=== PATIENT | female | born 1940 | race Caucasian/White ===

== ENCOUNTER → 2017-07-08 | Outpatient (CLI) | payer OTHER ==
[~2017-07-08] MED LIST: ACETAMINOPHEN 325 MG TAB PO ONE
== END ==
LOC: FOBOP 13:30
PROVIDERS: ATTEND Internal Medicine Hematology & Oncology
PROC: 30243N1 Transfusion of Nonautologous Red Blood Cells into Central Vein, Percutaneous Approach (ICD-10-PCS; principal; 2017-07-08)
DX: R53.83 Other fatigue (principal); D75.81 Myelofibrosis
CPT/HCPCS: 36430; P9016; P9040

== ENCOUNTER 2017-07-10 14:06 | Emergency (ER) | payer OTHER ==
[2017-07-10 14:12] VITALS: TEMP 98.4
--- NOTE | 2017-07-10 15:10 | CPEKG ---
Heart Rate: 88 RR Interval: 682 P-R Interval: 176 QRSD Interval: 72 QT Interval: 372 QTC Interval: 450 P Loyall: 56 QRS Loyall: -10 T Wave Loyall: 43 EKG Severity - NORMAL ECG - EKG Impression: SINUS RHYTHM Electronically Signed By: Ashley Carroll 10-Jul-2017 22:57:14
--- NOTE | 2017-07-10 15:25 | EDPHY ---
H & P Stated Complaint: right lung pain Time Seen by Provider: 07/10/17 15:14 HPI/ROS: CHIEF COMPLAINT: Right sided chest pain HISTORY OF PRESENT ILLNESS: This patient is an anticoagulated (Coumadin) 77 year old female with myelofibrosis and pulmonary embolism complaining of severe right-sided chest pain. Onset of rt sided chest pain 2 months ago. One week ago she was diagnosed with a pulmonary embolism and placed on Coumadin and Lovenox. While driving into town this morning, her pain worsened suddenly, and "feels like something exploded" in her right chest area. The pain is severe and worsens with inspiration. She has noted increased shortness of breath over the last few weeks but no worsening today. She had a blood transfusion recently. Prior to her diagnosis of PE, she had intermittent right-sided chest pain since April. She denies any recent trauma. No fever, cough, abdominal complaints, or other associated symptoms. REVIEW OF SYSTEMS: A 10 point review of systems was performed and is negative with the exception of the elements mentioned in the history of present illness. - Personal History Current Tetanus Diphtheria and Acellular Pertussis (TDAP): Yes Tetanus Vaccine Date: within ten years - Medical/Surgical History PMH: 1. Myelofibrosis (diagnosed two weeks ago) 2. Pulmonary embolism (one week ago) Hx Asthma: No Hx Chronic Respiratory Disease: No Hx Diabetes: No Hx Cardiac Disease: No Hx Renal Disease: No Hx Cirrhosis: No Hx Alcoholism: No Hx HIV/AIDS: No Hx Splenectomy or Spleen Trauma: No Other PMH: recent dx of PE, myeloproliferative d/o - Social History Smoking Status: Never smoked Additional Social History: Lives in [place]. Friends at bedside. PCP Dr. Rene. - Physical Exam Exam: General Appearance: Alert, appears in pain Eyes: Pupils equal and round, no conjunctival pallor or injection ENT, Mouth: Mucous membranes moist Neck: Normal inspection Respiratory: Lungs are clear to auscultation Cardiovascular: Regular rate and rhythm Gastrointestinal: Abdomen is soft and non-tender Neurological: A&O, nonfocal, normal gait Skin: Warm and dry, no rash Extremities: Nontender, no pedal edema Psychiatric: Mood and affect normal Constitutional: Initial Vital Signs Temperature (C) 36.9 C 07/10/17 14:09 Heart Rate 93 07/10/17 14:09 Respiratory Rate 20 07/10/17 14:09 Blood Pressure 181/81 H 07/10/17 14:09 O2 Sat (%) 95 07/10/17 14:09 O2 Delivery Mode Room Air O2 (L/minute) 2 Allergies/Adverse Reactions: No Allergies [NKDA] Allergy (Verified 07/21/16 12:12) Home Medications: Medication Instructions Recorded Citalopram [celeXA 20 MG (RX)] 20 mg PO BID 09/28/12 traMADol [Ultram 50 mg (RX)] 50 mg PO TID PRN 09/28/12 Warfarin Sodium 07/10/17 oxyCODONE/APAP 5/325 [Percocet 1 tab PO Q4 PRN #15 tab 07/10/17 5/325 (*)] Medical Decision Making - Diagnostics EKG Interpretation: EKG interpreted by me reveals normal sinus rhythm, rate 88, no ST or T segment changes Imaging: Discussed imaging studies w/ private duty nurse Radiologist, I viewed and interpreted images myself ED Course/Re-evaluation: This patient presents with worsening right-sided chest pain, after recent diagnosis of pulmonary embolism. Stat chest x-ray reveals a Oakley's hump in the right lung. Dr. Blas, radiologist, called to discuss this result. Morphine IV given for pain control. CT pulmonary angiogram ordered to rule out worsening pulmonary embolism. Stat EKG reveals no evidence of ischemia or dysrhythmia and I do not suspect acute coronary syndrome in this patient. 17:[address] Abelardo Saucedo and he reviewed the prior CTA chest performed on 07/02/17 at [facility]. RUL PE and evolving infarct present on that CT. Similar to today's CTA. Given that her INR is adequate and the right-sided PE is relatively unchanged, if I can adequately control her pain, I think that she could be safely discharged home. 17:25 Reassessed patient. She is comfortable with home discharge and outpatient followup. Plan to discharge in good condition with prescription for Percocet for pain control. She had discontinued her Coumadin two days ago, and will resume this evening and have repeat INR on Thursday. She plans to follow up with her PCP this weekend. Return precautions discussed. The patient is comfortable with this plan. Differential Diagnosis: Differential diagnosis includes though it is not limited to pneumonia, pneumothorax, pulmonary embolism, aortic dissection, pericarditis, acute coronary syndrome. - Data Points Laboratory Results: Laboratory Results 07/10/17 15:05 07/10/17 15:05 Medications Given: Discontinued Medications Morphine Sulfate (Morphine) 6 mg IVP EDNOW ONE Stop: 07/10/17 15:29 Last Admin: 07/10/17 15:38 Dose: 6 mg Morphine Sulfate (Morphine) 4 mg IVP EDNOW ONE Stop: 07/10/17 16:45 Last Admin: 07/10/17 16:46 Dose: 4 mg Ondansetron HCl (Zofran) 4 mg IVP EDNOW ONE Stop: 07/10/17 15:29 Last Admin: 07/10/17 15:38 Dose: 4 mg Departure - Departure Disposition: Home, Routine, Self-Care Clinical Impression: Pulmonary infarct Chest pain Qualifiers: Chest pain type: pleurodynia Qualified Code(s): R07.81 - Pleurodynia Pulmonary embolism Qualifiers: Pulmonary embolism type: other Chronicity: acute Acute cor pulmonale presence: without acute cor pulmonale Qualified Code(s): I26.99 - Other pulmonary embolism without acute cor pulmonale Condition: Good Instructions: Chest Pain (ED), Deep Venous Thrombosis (ED) Additional Instructions: 1. Resume your Coumadin tonight as prescribed. Have your INR rechecked Thursday. 2. Take Percocet as prescribed as needed for severe pain. 3. Follow up with Dr. Rene for continued evaluation and symptom management. 4. Return to the emergency department for uncontrollable pain, worsening shortness of breath, chest pressure or change in the nature of your discomfort, or other worsening of condition. Referrals: Lei Rene MD [Primary Care Provider] - As per Instructions Prescriptions: oxyCODONE/APAP 5/325 [Percocet 5/325 (*)] 1 tab PO Q4 PRN #15 tab PRN Reason: pain Report Scribed for: Ashley Carroll Report Scribed by: Francesca Arechiga Date of Report: 07/10/17 Time of Report: 15:26 Physician Review and Approval Statement: 07/10/17 15:27 Portions of this note were transcribed by a medical reception. I personally performed a history, physical exam, medical decision making, and confirmed accuracy of information the transcribed note.
[2017-07-10 15:27] LABS: % IMMATURE GRANULYOCYTES 1.9 % (0.0-1.1); ABSOLUTE IMMATURE GRANULOCYTES 0.07 10^3/uL (0.00-0.10); ABSOLUTE NRBC COUNT 0.11 10^3/uL (0-0.01); ADD DIFF? NO; ADD MORPH? YES; ADD SCAN? NO; ATYPICAL LYMPHOCYTE FLAG 0 (0-99); FRAGMENT RBC FLAG 20 (0-99); HEMATOCRIT 28.1 % (38.0-47.0); HEMOGLOBIN 9.6 g/dL (12.6-16.3); LEFT SHIFT FLG 10 (0-99); LIPEMIA HEMOLYSIS FLAG 90 (0-99); MEAN CELL HEMOGLOBIN 29.2 pg (27.9-34.1); MEAN CELL HEMOGLOBIN CONCENTR. 34.2 g/dL (32.4-36.7); MEAN CELL VOLUME 85.4 fL (81.5-99.8); PLATELET CLUMPS FLAG 0 (0-99); PLATELET COUNT 162 10^3/uL (150-400); RED BLOOD CELL COUNT 3.29 10^6/uL (4.18-5.33); RED CELL DISTRIBUTION WIDTH 15.7 % (11.5-15.2)
[2017-07-10 15:28] LABS: NRBC-AUTO% 2.9 % (0.0-0.2)
[2017-07-10] MEDS ORDERED: ONDANSETRON 4 MG/2 ML VIAL IVP ONE (15:28)
[2017-07-10 15:32] LABS: INR 2.67 (0.83-1.16); PROTIME(PATIENT) 28.7 SEC (12.0-15.0)
[2017-07-10 15:33] LABS: ANION GAP 11 mEq/L (8-16); CALCIUM 8.6 mg/dL (8.5-10.4); CARBON DIOXIDE 23 mEq/l (22-31); CHLORIDE 104 mEq/L (97-110); CREATININE 0.9 mg/dL (0.6-1.0); GLOMERULAR FILTRATION RATE > 60; GLUCOSE 91 mg/dL (70-100); POTASSIUM 3.7 mEq/L (3.5-5.2); SODIUM 138 mEq/L (134-144)
[2017-07-10] MEDS ORDERED: IOPAMIDOL (ISOVUE 370) 100 ML BTL IV ONE (15:45)
[2017-07-10 15:52] LABS: HYPOCHROMIA 1+; MICROCYTES 1+; POLYCHROMASIA 2+
[2017-07-10 15:53] LABS: ECHINOCYTES 1+; ELLIPTOCYTES 1+; KERATOCYTES 1+; PLATELET ESTIMATE ADEQUATE (ADEQ)
[2017-07-10 17:13] VITALS: O2SAT 96
[2017-07-10 17:51] VITALS: BP 147/88; PULSE 81; RESP 18
== END 2017-07-10 17:49 | disposition home or self-care (01) ==
DX: I26.99 Other pulmonary embolism without acute cor pulmonale (principal); Z79.01 Long term (current) use of anticoagulants
CPT/HCPCS: 71010; 71275; 93005; 96374; 96375; 96376; 99285; J2405; Q9967; 82947-QW

== ENCOUNTER → 2018-01-27 | Outpatient (CLI) | payer OTHER | LOC: FIMAGING 08:51 | PROVIDERS: ATTEND Internal Medicine Hematology & Oncology | DX: D47.1 Chronic myeloproliferative disease (principal) ==

== ENCOUNTER 2018-04-13 14:36 | Emergency (ER) | payer OTHER ==
--- NOTE | 2018-04-13 14:51 | EDPHY ---
H & P Stated Complaint: sent by [facility] for rt sided abd pain x 2 wks Time Seen by Provider: 04/13/18 14:50 - Personal History Current Tetanus/Diphtheria Vaccine: Unsure Current Tetanus Diphtheria and Acellular Pertussis (TDAP): Unsure Tetanus Vaccine Date: within ten years - Medical/Surgical History Hx Asthma: No Hx Chronic Respiratory Disease: No Hx Diabetes: No Hx Cardiac Disease: No Hx Renal Disease: No Hx Cirrhosis: No Hx Alcoholism: No Hx HIV/AIDS: No Hx Splenectomy or Spleen Trauma: No Other PMH: PE, myeloproliferative d/o, anemia, total neck fusion 2012, total back surgery 2007. - Social History Smoking Status: Never smoked Constitutional: Initial Vital Signs Temperature (C) 36.6 C 04/13/18 14:41 Heart Rate 79 04/13/18 14:41 Respiratory Rate 16 04/13/18 14:41 Blood Pressure 153/83 H 04/13/18 14:41 O2 Sat (%) 97 04/13/18 14:41 O2 Delivery Mode Room Air Allergies/Adverse Reactions: No Allergies [NKDA] Allergy (Verified 04/13/18 14:38) Home Medications: Medication Instructions Recorded Citalopram [celeXA 20 MG (RX)] 20 mg PO BID 09/28/12 Warfarin Sodium 07/10/17 oxyCODONE/APAP 5/325 [Percocet 1 tab PO Q4 PRN #15 tab 07/10/17 5/325 (*)] Ambien 5MG (*) 5 mg 01/13/18 Allopurinol [Allopurinol 300 MG 300 mg PO DAILY #60 tab 04/13/18 (RX)] oxyCODONE IR [Oxycodone Ir (*)] 5 - 10 mg PO Q6 PRN #60 tab 04/13/18 predniSONE 60 mg PO DAILY #120 tab 04/13/18 Medical Decision Making - Diagnostics Imaging Results: Imaging Impressions Abdomen Ultrasound 04/13/18 15:10 Impression: Negative for acute cholecystitis. Abdomen CT 04/13/18 16:22 Impression: 1. Negative for acute abdominopelvic process. 2. Large duodenal diverticulum. 3. Colonic diverticulosis. 3. Probable uterine fibroid. Imaging: Discussed imaging studies w/ machine cementer and folder Radiologist, I viewed and interpreted images myself ED Course/Re-evaluation: CHIEF COMPLAINT: Right abdominal pain HISTORY OF PRESENT ILLNESS: The patient is an anticoagulated (Warfarin) 78 y/o female with a history of leukemia, PE's, myelofibrosis, and multiple back surgeries complaining of worsening right upper abdominal pain, onset 2 weeks ago. During a prior emergency room visit, she had similar symptoms but this was attributed to her myelofibrosis. Due to this pain she saw her PCP, Dr. Rene, who advised that she present to the emergency department. Denies chest pain, shortness of breath , vomiting, urinary or bowel complaints, numbness, paresthesias, fever. She was recently diagnosed with leukemia and is being followed by Dr. Ren, oncologist. REVIEW OF SYSTEMS: A 10 point review of systems was performed and is negative with the exception of the elements mentioned in the history of present illness. PHYSICAL EXAM: HR, BP, O2 Sat, RR. Temp noted General Appearance: Alert, well hydrated, appropriate, and non-toxic appearing. Head: Atraumatic without scalp tenderness or obvious injury Eyes: Pupils equal, round, reactive to light and accommodation, EOMI, no trauma , no injection. Ears: Clear bilaterally, no perforation, normal landmarks Nose: Atraumatic, no rhinorrhea, clear. Throat: There is no erythema or exudates, no lesions, normal tonsils, mucus membranes moist. Neck: Supple, nontender, no lymphadenopathy. Respiratory: No retractions, no distress, no wheezes, and no accessory muscle use. Lungs are clear to auscultation bilaterally. Cardiovascular: Regular rate and rhythm, no murmurs, rubs, or gallops. Bilateral carotid, radial, dorsalis pedis, and posterior tibial pulses intact. Good capillary refill all extremities. Gastrointestinal: Positive Malik's sign in the right upper quadrant. Abdomen is soft, non-distended, no masses, no rebound, no guarding, no peritoneal signs. Musculoskeletal: Normal active ROM of all extremities, atraumatic. Neurological: Alert, appropriate, and interactive. Nonfocal neuro. Skin: No rashes, good turgor, no nodules on palpation. Past medical history: PE, myeloproliferative d/o, anemia, leukemia Past surgical history: Total neck fusion (2012), total back surgery (2007) Family history: Denies Social history: Lives in [place], employed, single DIAGNOSTICS/PROCEDURES/CRITICAL CARE TIME: Abdominal US: Normal Abdominopelvic CT: No acute findings DIFFERENTIAL DIAGNOSIS: The differential diagnosis for the patient's abdominal pain included but was not limited to ovarian cyst, pelvic inflammatory disease, ovarian torsion, urinary tract infection, ectopic , cholecystitis, and appendicitis. MEDICAL DECISION MAKING: The patient is an anticoagulated (Warfarin) 78 y/o female with a history of leukemia, PE's, myelofibrosis, and multiple back surgeries presenting with worsening right upper abdominal pain, onset 2 weeks ago. On exam she has a positive Malik's sign. Labs and abdominal US ordered; 1L IV NS, 1mg IV Dilaudid , and 4mg IV Zofran administered. 1540: Patient has a low H&H 1622: Patient's abdominal US is normal; abdominopelvic CT ordered. 1641: Consulted with Dr. Ren, oncologist, regarding this patient. 1700: Spoke with radiologist regarding patient's abdominopelvic CT, which reveals no acute findings. 1710: Consulted with Dr. Ren regarding patient and her CT findings. Patient will given prescriptions for Prednisone, Allopurinol, and OxyIR; the first dose of Prednisone and Allopurinol given prior to discharge. I have advised her to buy Prilosec OTC. She will need to follow up with Dr. Ren this week. Return precautions provided; patient is comfortable with this plan. - Data Points Laboratory Results: Laboratory Results 04/13/18 15:00 04/13/18 15:00 04/13/18 04/13/18 15:00 15:00 WBC 1.72 10^3/uL L 10^3/uL (3.80-9.50) RBC 3.35 10^6/uL L 10^6/uL (4.18-5.33) Hgb 9.9 g/dL L g/dL (12.6-16.3) Hct 29.2 % L % (38.0-47.0) MCV 87.2 fL fL (81.5-99.8) MCH 29.6 pg pg (27.9-34.1) MCHC 33.9 g/dL g/dL (32.4-36.7) RDW 16.7 % H % (11.5-15.2) Plt Count 139 10^3/uL L 10^3/uL (150-400) MPV 10.6 fL fL (8.7-11.7) Neut % (Auto) 16.8 % L % (39.3-74.2) Lymph % (Auto) 77.9 % H % (15.0-45.0) [place] % (Auto) 4.1 % L % (4.5-13.0) Eos % (Auto) 0.0 % L % (0.6-7.6) Baso % (Auto) 0.6 % % (0.3-1.7) Nucleat RBC Rel Count 0.0 % % (0.0-0.2) Absolute Neuts (auto) 0.29 10^3/uL L 10^3/uL (1.70-6.50) Absolute Lymphs (auto) 1.34 10^3/uL 10^3/uL (1.00-3.00) Absolute Monos (auto) 0.07 10^3/uL L 10^3/uL (0.30-0.80) Absolute Eos (auto) 0.00 10^3/uL L 10^3/uL (0.03-0.40) Absolute Basos (auto) 0.01 10^3/uL L 10^3/uL (0.02-0.10) Absolute Nucleated RBC 0.00 10^3/uL 10^3/uL (0-0.01) Immature Gran % 0.6 % % (0.0-1.1) Immature Gran # 0.01 10^3/uL 10^3/uL (0.00-0.10) RBC/WBC/PLT Morphology TNP Platelet Estimate TNP Sodium 141 mEq/L mEq/L (135-145) Potassium 4.2 mEq/L mEq/L (3.3-5.0) Chloride 109 mEq/L mEq/L (97-110) Carbon Dioxide 22 mEq/l mEq/l (22-31) Anion Gap 10 mEq/L mEq/L (8-16) BUN 20 mg/dL mg/dL (7-23) Creatinine 0.9 mg/dL mg/dL (0.6-1.0) Estimated GFR > 60 Glucose 97 mg/dL mg/dL (70-100) Calcium 9.0 mg/dL mg/dL (8.5-10.4) Total Bilirubin 0.5 mg/dL mg/dL (0.1-1.4) Conjugated Bilirubin 0.3 mg/dL mg/dL (0.0-0.5) Unconjugated Bilirubin 0.2 mg/dL mg/dL (0.0-1.1) AST 33 IU/L IU/L (14-46) ALT 39 IU/L IU/L (9-52) Alkaline Phosphatase 111 IU/L IU/L (38-126) Total Protein 6.5 g/dL g/dL (6.3-8.2) Albumin 3.8 g/dL g/dL (3.5-5.0) Lipase 73 IU/L IU/L (23-300) Medications Given: Discontinued Medications Hydromorphone HCl (Dilaudid) 1 mg IVP EDNOW ONE Stop: 04/13/18 15:10 Last Admin: 04/13/18 15:18 Dose: 1 mg Sodium Chloride (Ns) 1,000 mls @ 0 mls/hr IV EDNOW ONE; Wide Open PRN Reason: Protocol Stop: 04/13/18 15:10 Last Admin: 04/13/18 15:18 Dose: 1,000 mls Ondansetron HCl (Zofran) 4 mg IVP EDNOW ONE Stop: 04/13/18 15:10 Last Admin: 04/13/18 15:17 Dose: 4 mg Departure - Departure Disposition: Home, Routine, Self-Care Clinical Impression: Abdominal pain Qualifiers: Abdominal location: right upper quadrant Qualified Code(s): R10.11 - Right upper quadrant pain Condition: Good Instructions: Allopurinol (By mouth), Prednisone (By mouth), Oxycodone, Rapid Release (By mouth), Acute Abdominal Pain (ED) Additional Instructions: 1. Do not take your Coumadin tonight. 2. Take Prednisone as prescribed. 3. Take Allopurinol as prescribed. 4. Buy Prilosec over the counter. 5. Take OxyIR as prescribed. 6. Keep your appointment with Dr. Ren. 7. Return to the Emergency Department for fever, chest pain, shortness of breath , increasing pain or other worsening of condition. Referrals: Lei Rene MD [Primary Care Provider] - As per Instructions Wolf Ren MD [Medical Doctor] - As per Instructions Prescriptions: Allopurinol [Allopurinol 300 MG (RX)] 300 mg PO DAILY #60 tab oxyCODONE IR [Oxycodone Ir (*)] 5 - 10 mg PO Q6 PRN #60 tab PRN Reason: Pain, Severe predniSONE 60 mg PO DAILY #120 tab Report Scribed for: Kameron Jurado Report Scribed by: Jocelyn Hodges Date of Report: 04/13/18 Time of Report: 14:54
[2018-04-13] MEDS ORDERED: ONDANSETRON 4 MG/2 ML VIAL IVP ONE (15:09)
[2018-04-13] MEDS ORDERED: NS 1,000 ML IV ONE (15:09)
[2018-04-13] MEDS ORDERED: HYDROmorphONE/DILAUDID 2 MG/ML INJ IVP ONE (15:09)
[2018-04-13] MEDS ORDERED: HYDROmorphONE/DILAUDID 1 MG/ML INJ ONE (15:14)
[2018-04-13 15:22] LABS: PLATELET COUNT 139 10^3/uL (150-400)
[2018-04-13] MEDS ORDERED: IOPAMIDOL (ISOVUE-300) 100 ML BTL ONE (16:24)
[2018-04-13] MEDS ORDERED: ALLOPURINOL 300 MG TAB PO ONE (17:11)
[2018-04-13] MEDS ORDERED: predniSONE 20 MG TAB PO ONE (17:11)
[2018-04-13 17:21] VITALS: BP 142/86
--- NOTE | 2018-04-14 12:18 | GCON ---
[f rep st] CONSULTATION INPATIENT ONCOLOGY CONSULTATION DATE OF CONSULTATION: 04/13/2018 REFERRING PHYSICIAN: Kameron Jurado MD REASON FOR CONSULTATION: New diagnosis of acute lymphoblastic leukemia. HISTORY OF PRESENT ILLNESS: The patient is a 78-year-old woman, well known to me from my clinic. Michaelle vinson presented about a year ago with complaints of arthralgias and also a platelet count of 1.4 million. 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 She was treated with hydroxyurea and Jakafi, though both of those medications resulted in lowerin g of her blood counts and had to be stopped. She also developed a pulmonary embolism and is currentl y on Coumadin. She stopped the Jakafi about a month ago. She saw her primary care physician last week, who noted th at she had a white count of 1.7 and a hemoglobin of 6.7. I performed a bone marrow biopsy and also a rranged for red blood cell transfusion. 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 FISH studies were negative for [place] chromosome or MLL rearrangements. She saw her primary care physician today and was not feeling well, and in particular was complaining of pain in the right upper quadrant. Her primary care physician thought that she might have hepatome shannon. She was referred to the emergency department. Here, her counts are essentially stable. Her h emoglobin improved appropriately with the red blood cell transfusion. Her INR was mildly elevated at 3.5. Ultrasound and abdominal CT did not reveal any other abnormalities or explanations for her syeda n, which is persistent. PAST MEDICAL HISTORY: Otherwise unremarkable. CURRENT MEDICATIONS: None. FAMILY HISTORY: Noncontributory. SOCIAL HISTORY: She lives alone in [place]. REVIEW OF SYSTEMS: Aside from pertinent positives in the HPI, a 14-point review of systems was negat declan. PHYSICAL EXAMINATION: VITAL SIGNS: Temperature 36.6, blood pressure 153/83, heart rate 79, oxygen s aturation 97% on room air. GENERAL: She was in no acute distress. She was breathing comfortably. HEENT: Her sclerae were anicteric. Oropharynx was clear. NECK: Supple without lymphadenopathy. L UNGS: Clear to auscultation bilaterally. CARDIAC EXAM: Regular rate and rhythm. No murmurs, dobson ps, or rubs. ABDOMEN: Normoactive bowel sounds. Nontender, nondistended. There was no right upper quadrant tenderness. EXTREMITIES: Without edema. No petechiae or purpura. LABORATORY DATA: White count 1.72 with a neutrophil count of 290, hemoglobin 9.9, platelets of 139. Chemistry panel, including liver function tests, was within normal limits. IMPRESSION: This is a 78-year-old woman presenting with pancytopenia due to B-cell acute lymphoblast ic leukemia, which appears to have emerged from a background myeloproliferative neoplasm. This is a very rare disease in older patients, particularly rare as a secondary malignancy to myeloproliferativ e neoplasm. Younger patients are often treated with very intensive chemotherapy regimens, which olde r patients are not able to tolerate. We discussed the use of a palliative regimen such as prednisone and daunorubicin and vincristine, possibly to be followed by other consolidation or maintenance ther apy as indicated and as tolerated. We also discussed the option of supportive care alone in a hospic e setting. She is leaning toward treatment, but has been undecided. She strongly wishes to return [facility] for the April, which is tomorrow. I think this is reasonable, and the disease does not appear to be moving at a very aggressive pace, though we will need to start definitive treatment with in the next week or so. In the meantime, I will send her home on prednisone 60 mg daily, allopurinol to prevent tumor lysis s yndrome, and oxycodone for her pain. She has an appointment to see me on April 15 in clinic. /[id number]/MODL
== END 2018-04-13 17:27 | disposition home or self-care (01) ==
DX: R10.11 Right upper quadrant pain (principal); E86.9 Volume depletion, unspecified; Z79.01 Long term (current) use of anticoagulants
CPT/HCPCS: 74177; 76705; 96361; 96374; 96375; 99285; J1170; J2405; J7512; Q9967

== ENCOUNTER 2018-06-27 22:08 | Emergency (ER) | payer OTHER ==
[2018-06-27] MEDS ORDERED: OXYMETAZOLINE 30 ML NASAL SPRAY EACHNARE ONE (22:45)
--- NOTE | 2018-06-27 22:45 | EDPHY ---
General Time Seen by Provider: 06/27/18 22:39 Narrative: CHIEF COMPLAINT: Nose bleed HISTORY OF PRESENT ILLNESS: Patient presents with complaints of nosebleed. This started approximately 5:00 p.m. Today while at rest. It is right-sided. It has been constant. She has been applying pressure with gauze and inserting cotton tampons into the nostril. The bleeding has not stopped. She has no headache. No chest pain. No lightheadedness or syncope. She does take warfarin for DVT and PE prophylaxis. She is currently on hospice for leukemia. She has multiple recurrent nosebleeds in the past. She says they typically stop with methods that she is using today but they have not done so today. She has no complaints of pain. No other associated complaints or modifying factors. REVIEW OF SYSTEMS: 10 systems were reviewed and negative with the exception of the elements mentioned in the history of present illness. PAST MEDICAL HISTORY: Myeloproliferative disorder, acute lymphocytic leukemia, recurrent nose bleeds, arthritis myelofibrosis PAST SURGICAL HISTORY: No recent surgical history SOCIAL HISTORY: Nonsmoker. Currently on home hospice FAMILY HISTORY: Noncontributory EXAMINATION: General Appearance: Alert, no distress Head: normocephalic, atraumatic Eyes: Pupils equal and round, no conjunctival pallor or injection ENT, Mouth: Mucous membranes moist. No bleeding in the posterior pharynx. There is active, venous bleeding from the right nostril with nonpulsatile bleeding visualized. Airway remains patent. Neck: Normal inspection, supple, non-tender Respiratory: No retractions or distress Cardiovascular: Regular rate. Good signs of perfusion Neurological: A&O, nonfocal, normal gait Skin: Warm and dry, no rash. No petechiae or purpura Extremities: Nontender, no pedal edema Psychiatric: Mood and affect normal DIFFERENTIAL DIAGNOSES: Including but not limited to anterior epistaxis, posterior epistaxis, acute blood-loss anemia, warfarin coagulopathy MDM: 10:40 p.m. Right-sided epistaxis with no evidence of posterior bleed at this time. She is a warfarin coagulopathy due to DVT and PE prophylaxis from cancer. She is awake alert. No acute distress with vital signs are within normal limits. At the request of the patient and her family, I will contact the hospice nurse to obtain permission to treat. 10:50 p.m. I discussed the case with hospice nurse, Vanessa. She will return our call shortly. 11:00 p.m. I discussed the case with hospice nurse again. She is given her verbal consent for us to continue with our treatment, routine epistaxis management. 11:50 p.m. Critical lab value of thrombocytosis. This is expected in the patient's history of ALL a myeloproliferative disorder. I re-evaluated at this time and removed the TXA packing. 12:30 a.m. Patient re-evaluated. She has return of her epistaxis. At this point I do feel she will need the nasal packing. She has consented verbally. 1:15 a.m. I placed a right-sided 5.5 cm rhino rocket without difficulty. I have also contacted the hospice nurse, Vanessa. We discussed her INR. She has conferred with the on-call hospice physician who has requested p.o. Vitamin K prior to discharge home. I do not feel that IM or IV vitamin K are appropriate as she will be discharged home and without have monitoring. She does have an appoint with primary care physician 1st thing in the morning. She will follow up with her accordingly. We discussed strict ED precautions for return of nosebleed or bleeding from any site. We discussed avoiding any injury to the nose and leaving the nasal packing in place. She has declined antibiotics. She has declined admission to the hospital though I have offered this. We discussed risks, benefits and alternatives and all in the room are comfortable with assuming this risk. She is well-appearing. She would like to go home, and she is discharged in stable condition. PROCEDURE: Epistaxis management, 1. Indication: epistaxis Consent: verbal Description: 1% lidocaine, 5 mL was infused to the right nostril using the atomizer. I then soaked a 2 x 2 gauze in topical tranxemic acid. This was inserted to the right nostril in an AP position. Nose clamp was returned. The pharynx is visualized and was no active bleeding. Follow-up: ENT in 2-3 days PROCEDURE: Epistaxis management, 2 Indication: epistaxis Consent: verbal Description: Topical lidocaine, 1%, 5 mL was infused to the right nostril using and atomizer. I then soaked a 5.5 cm AP rhino rocket in topical T x-ray. This was inserted and inflated to specks. Bleeding stopped immediately. Visualization of the posterior pharynx reveals no active bleeding airway patent. Tolerated well. Follow-up: ENT in 2-3 days SUPERVISION: This patient was independently evaluated without direct involvement of or examination by the attending physician. 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 [phone] - History Smoking Status: Never smoked - Objective Vital Signs: Initial Vital Signs Temperature (C) 98.2 F 06/27/18 22:16 Heart Rate 92 06/27/18 22:16 Respiratory Rate 16 06/27/18 22:16 Blood Pressure 162/114 H 06/27/18 22:16 O2 Sat (%) 95 06/27/18 22:16 O2 Delivery Mode Room Air Allergies/Adverse Reactions: No Allergies [NKDA] Allergy (Verified 04/13/18 14:38) Home Medications: Medication Instructions Recorded Ambien 5MG (*) 5 mg PO HS 01/13/18 Acetaminophen [Arthritis Pain 650 mg PO Q6H PRN 04/28/18 Relief] Herbals/Supplements -Info Only PRN 04/28/18 Ibuprofen 400 mg PO Q6H PRN 04/28/18 NEOSPORIN + PAIN RELIEF OINT PRN 04/28/18 Ondansetron Sl 4 mg PO Q4H PRN 04/28/18 Sennosides/Docusate Sodium 1 each PO BID PRN 04/28/18 [Senna-Docusate Sodium Tablet] Sulfamethox/Tmp 800/160 mg 1 tab PO BID 04/28/18 [Bactrim Ds] oxyCODONE HCL/ACETAMINOPHEN 1 each PO Q6 PRN 04/28/18 [Oxycodone-Acetaminophen 5-325] Laboratory Results: Laboratory Results 06/27/18 23:20 06/28/18 06/27/18 06/27/18 00:16 23:35 23:20 WBC RBC Hgb Hct MCV MCH MCHC RDW Plt Count Platelet Estimate PT 65.7 SEC H SEC REJ REJ (12.0-15.0) INR 8.03 H* REJ REJ (0.83-1.16) APTT 98.4 SEC H SEC REJ REJ (23.0-38.0) 06/27/18 23:20 WBC 10.68 10^3/uL H 10^3/uL (3.80-9.50) RBC 3.23 10^6/uL L 10^6/uL (4.18-5.33) Hgb 9.2 g/dL L g/dL (12.6-16.3) Hct 27.7 % L % (38.0-47.0) MCV 85.8 fL fL (81.5-99.8) MCH 28.5 pg pg (27.9-34.1) MCHC 33.2 g/dL g/dL (32.4-36.7) RDW 17.8 % H % (11.5-15.2) Plt Count 1171 10^3/uL H* 10^3/uL (150-400) Platelet Estimate INCREASED H (ADEQ) PT INR APTT Medications Given: Discontinued Medications Oxymetazoline HCl (Afrin Nasal [place]) 2 sprays EACHNARE EDNOW ONE Stop: 06/27/18 22:46 Last Admin: 06/27/18 23:47 Dose: 1 spray Tranexamic Acid (Cyklokapron) 500 mg TP EDNOW ONE Stop: 06/27/18 22:59 Last Admin: 06/27/18 23:47 Dose: 500 mg Departure - Departure Disposition: Home, Routine, Self-Care Clinical Impression: Acute anterior epistaxis, Warfarin anticoagulation, Warfarin-induced coagulopathy Condition: Good Instructions: Nosebleed (ED) Additional Instructions: 1. Leave the right nasal tampon in place until seen by primary care physician or ear nose and throat physician 2. Tomorrow morning to discuss your laboratory studies with Dr. Rene. 3. Tomorrow morning discussed ENT referral for removal of the rhino rocket nasal tampon 4. Return to emergency depart for any chest pain, lightheadedness, syncope, return of bleeding Referrals: Lei Rene MD [Primary Care Provider] - As per Instructions Bryanna Sahu MD [Medical Doctor] - As per Instructions
[2018-06-27] MEDS ORDERED: OXYMETAZOLINE 30 ML NASAL SPRAY ONE (22:52)
[2018-06-27] MEDS ORDERED: TRANEXAMIC ACID 1,000 MG/10 ML VIAL TP ONE (22:58)
[2018-06-27 23:48] LABS: PLATELET COUNT 1171 10^3/uL (150-400)
[2018-06-28] MEDS ORDERED: SILVER NITRATE APPLICATOR 1 APPL TP ONE
[2018-06-28 00:46] LABS: INR 8.03 (0.83-1.16); PROTIME(PATIENT) 65.7 SEC (12.0-15.0)
[2018-06-28] MEDS ORDERED: PHYTONADIONE 2.5 MG/2.5 ML ORAL UDL PO ONE (01:17)
[2018-06-28 02:06] VITALS: BP 158/75
== END 2018-06-28 02:02 | disposition home or self-care (01) ==
PROC: 2Y41X5Z Packing of Nasal Region using Packing Material (ICD-10-PCS; principal; 2018-06-27)
DX: R04.0 Epistaxis (principal)

== ENCOUNTER 2018-08-11 18:48 | Emergency (ER) | payer OTHER ==
[2018-08-11] MEDS ORDERED: NS 1,000 ML IV ONE (18:53)
--- NOTE | 2018-08-11 18:57 | EDPHY ---
H & P Time Seen by Provider: 08/11/18 18:54 HPI/ROS: CHIEF COMPLAINT: Fall, altered mental status HISTORY OF PRESENT ILLNESS: Patient is a 78-year-old female with a history of myeloid dysplasia and B lymphoblastic leukemia who is currently on hospice and receiving morphine for pain control. I received a call from her primary doctor Aron Rene. He states that over the last 4-6 weeks her blood counts have stabilized however and that she may no longer be terminal and they are thinking about discontinuing the hospice. He received a call from the family today because she had fallen but family did not suspect any injuries. Doctor Edgard states that for the last several weeks she has been walking around practically drooling because she is on so much pain medication. He feels that it is time for her to start to decrease her pain medication now that she is no longer terminal. It was in the setting that she fell today. No apparent injuries and family initially refused EMS transport however Edgard wanted her to come in and get checked out for other possible causes of altered mental status. She is not on a blood thinner. No head trauma. She landed on her left shoulder. No left shoulder pain. Normal range of motion. Severity: Moderate Modifying factors: Medications REVIEW OF SYSTEMS: Constitutional: denies: chills, fever, recent illness, recent injury EENTM: denies: blurred vision, double vision, nose congestion Respiratory: denies: cough, shortness of breath Cardiac: denies: chest pain, irregular heart rate, lightheadedness, palpitations Gastrointestinal/Abdominal: denies: abdominal pain, diarrhea, nausea, vomiting, blood streaked stools Genitourinary: denies: dysuria, frequency, hematuria, pain Musculoskeletal: denies: joint pain, muscle pain Skin: denies: lesions, rash, jaundice, bruising Neurological: Lethargic denies: headache, numbness, paresthesia, tingling, dizziness, focal weakness Hematologic/Lymphatic: denies: blood clots, easy bleeding, easy bruising Immunologic/allergic: denies: HIV/AIDS, transplant 10 systems reviewed and negative except as noted EXAM: GENERAL: Lethargic, well-nourished and in no acute distress. Answers questions appropriately HEAD: Atraumatic, normocephalic. EYES: Pupils equal round and reactive to light, extraocular movements intact, sclera anicteric, conjunctiva are normal. ENT: TMs normal, nares patent, oropharynx clear without exudates. Moist mucous membranes. NECK: Normal range of motion, supple without lymphadenopathy or JVD. LUNGS: Breath sounds clear to auscultation bilaterally and equal. No wheezes rales or rhonchi. HEART: Regular rate and rhythm without murmurs, rubs or gallops. ABDOMEN: Soft, nontender, normoactive bowel sounds. No guarding, no rebound. No masses appreciated. BACK: No CVA tenderness, no spinal tenderness, step-offs or deformities EXTREMITIES: Normal range of motion, no pitting or edema. No clubbing or cyanosis. No left shoulder pain or deformity. NEUROLOGICAL: Cranial nerves II through XII grossly intact. Normal speech, normal gait. 5/5 strength, normal movement in all extremities, normal sensation , normal reflexes PSYCH: Decreased affect SKIN: Warm, dry, normal turgor, no visible rashes or lesions. 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, cervical fusion, back surgery - Family History Significant Family History: No pertinent family hx - Social History Smoking Status: Never smoked Alcohol Use: Sober Drug Use: None Constitutional: Initial Vital Signs Temperature (C) 37 C 08/11/18 18:53 Heart Rate 100 08/11/18 18:53 Respiratory Rate 18 08/11/18 18:53 Blood Pressure 147/66 H 08/11/18 18:53 O2 Sat (%) 90 L 08/11/18 18:53 O2 Delivery Mode Room Air Allergies/Adverse Reactions: No Allergies [NKDA] Allergy (Verified 04/13/18 14:38) Home Medications: Medication Instructions Recorded Ambien 5MG (*) 5 mg PO HS 01/13/18 Acetaminophen [Arthritis Pain 650 mg PO Q6H PRN 04/28/18 Relief] Herbals/Supplements -Info Only PRN 04/28/18 Ibuprofen 400 mg PO Q6H PRN 04/28/18 NEOSPORIN + PAIN RELIEF OINT PRN 04/28/18 Ondansetron Sl 4 mg PO Q4H PRN 04/28/18 Sennosides/Docusate Sodium 1 each PO BID PRN 04/28/18 [Senna-Docusate Sodium Tablet] Sulfamethox/Tmp 800/160 mg 1 tab PO BID 04/28/18 [Bactrim Ds] oxyCODONE HCL/ACETAMINOPHEN 1 each PO Q6 PRN 04/28/18 [Oxycodone-Acetaminophen 5-325] Cephalexin [Keflex Oral Liquid] 500 mg PO TID #1 bottle 08/11/18 Cephalexin [Keflex] 500 mg PO TID #21 cap 08/11/18 Medical Decision Making - Diagnostics EKG Interpretation: An EKG obtained and was read and documented in trace view. Please see trace view for full reading and report. Sinus rhythm, PVC, similar to previous Imaging Results: Imaging Impressions Chest X-Ray 08/11/18 18:53 Impression: Negative for acute cardiopulmonary abnormality. Head CT 08/11/18 18:53 Impression: Negative noncontrast CT of the brain. Underlying atrophy and chronic paranasal sinus disease. Results called to Dr. Castillo Means at 8:20 PM at the time of the interpretation. Imaging: Discussed imaging studies w/ java designer Radiologist ED Course/Re-evaluation: 7:15 p.m. The patient has urinary tract infection. I will start her on Rocephin. I will plan to admit to the hospital. Other lab work pending 7:30 p.m. I spoke with the patient's family. They state that over last 3 weeks she has become increasingly anxious and was recently started on Ativan and then Haldol was added. This is most certainly contributing to her altered mental status and lethargy. The patient is complaining diffuse pain and requesting pain medication. 8:00 p.m. I spoke with Dr. Terry who will admit to the medical service. CT head pending. 8:30 p.m. patient's family and her [id number] who was on the phone expressed concerns about wanting to admit her. They would prefer to take her home because she is on hospice. They misunderstood that the urine infection is not life-threatening. I told them that the urine infection is life threatening and she needs on antibiotics. Also I think that her medications could be optimized so that she has less pain but also last sedation and anxiety. I recommended that she come in the hospital for continued IV antibiotics as well as medication optimization and then return to hospice if she still qualifies. Vicky Benitez sounds as though she may not qualify for hospice much longer. 8:45 p.m. the patient was evaluated by Dr. Terry. They are again refusing admission. Dr. Terry spoke with hospice who does request that she be discharged according to the family's desires. They request the write her prescription for Keflex. Differential Diagnosis: Partial list of the Differential diagnosis considered include but were not limited to; medication reaction, urinary tract infection, sepsis and although unlikely based on the history and physical exam, I also considered pneumonia, intracranial injury. - Data Points Laboratory Results: Laboratory Results 08/11/18 19:20 08/11/18 19:20 08/11/18 08/11/18 08/11/18 19:20 19:20 19:20 WBC 5.42 10^3/uL 10^3/uL (3.80-9.50) RBC 3.28 10^6/uL L 10^6/uL (4.18-5.33) Hgb 9.7 g/dL L g/dL (12.6-16.3) Hct 30.6 % L % (38.0-47.0) MCV 93.3 fL fL (81.5-99.8) MCH 29.6 pg pg (27.9-34.1) MCHC 31.7 g/dL L g/dL (32.4-36.7) RDW 19.1 % H % (11.5-15.2) Plt Count 609 10^3/uL H 10^3/uL (150-400) MPV 10.9 fL fL (8.7-11.7) Neut % (Auto) 71.9 % % (39.3-74.2) Lymph % (Auto) 17.7 % % (15.0-45.0) Gregory % (Auto) 7.9 % % (4.5-13.0) Eos % (Auto) 0.4 % L % (0.6-7.6) Baso % (Auto) 0.4 % % (0.3-1.7) Nucleat RBC Rel Count 0.0 % % (0.0-0.2) Absolute Neuts (auto) 3.90 10^3/uL 10^3/uL (1.70-6.50) Absolute Lymphs (auto) 0.96 10^3/uL L 10^3/uL (1.00-3.00) Absolute Monos (auto) 0.43 10^3/uL 10^3/uL (0.30-0.80) Absolute Eos (auto) 0.02 10^3/uL L 10^3/uL (0.03-0.40) Absolute Basos (auto) 0.02 10^3/uL 10^3/uL (0.02-0.10) Absolute Nucleated RBC 0.00 10^3/uL 10^3/uL (0-0.01) Immature Gran % 1.7 % H % (0.0-1.1) Immature Gran # 0.09 10^3/uL 10^3/uL (0.00-0.10) PT 15.3 SEC H SEC (12.0-15.0) INR 1.19 H (0.83-1.16) APTT 33.7 SEC SEC (23.0-38.0) Sodium 139 mEq/L mEq/L (135-145) Potassium 4.6 mEq/L mEq/L (3.3-5.0) Chloride 105 mEq/L mEq/L (97-110) Carbon Dioxide 24 mEq/l mEq/l (22-31) Anion Gap 10 mEq/L mEq/L (6-14) BUN 13 mg/dL mg/dL (7-23) Creatinine 1.0 mg/dL mg/dL (0.6-1.0) Estimated GFR 54 Glucose 97 mg/dL mg/dL (70-100) Calcium 9.0 mg/dL mg/dL (8.5-10.4) Total Bilirubin 1.0 mg/dL mg/dL (0.1-1.4) Conjugated Bilirubin 0.6 mg/dL H mg/dL (0.0-0.5) Unconjugated Bilirubin 0.4 mg/dL mg/dL (0.0-1.1) AST 39 IU/L IU/L (14-46) ALT 36 IU/L IU/L (9-52) Alkaline Phosphatase 113 IU/L IU/L (38-126) Total Protein 6.0 g/dL L g/dL (6.3-8.2) Albumin 3.4 g/dL L g/dL (3.5-5.0) Urine Color Urine Appearance Urine pH Ur Specific [place] Urine Protein Urine Ketones Urine Blood Urine Nitrate Urine Bilirubin Urine Urobilinogen Ur Leukocyte Esterase Urine RBC Urine WBC Ur Epithelial Cells Urine Mucus Urine Glucose 08/11/18 19:00 WBC RBC Hgb Hct MCV MCH MCHC RDW Plt Count MPV Neut % (Auto) Lymph % (Auto) Gregory % (Auto) Eos % (Auto) Baso % (Auto) Nucleat RBC Rel Count Absolute Neuts (auto) Absolute Lymphs (auto) Absolute Monos (auto) Absolute Eos (auto) Absolute Basos (auto) Absolute Nucleated RBC Immature Gran % Immature Gran # PT INR APTT Sodium Potassium Chloride Carbon Dioxide Anion Gap BUN Creatinine Estimated GFR Glucose Calcium Total Bilirubin Conjugated Bilirubin Unconjugated Bilirubin AST ALT Alkaline Phosphatase Total Protein Albumin Urine Color YELLOW Urine Appearance MODERATELY TURBID Urine pH 5.0 (5.0-7.5) Ur Specific [place] 1.006 (1.002-1.030) Urine Protein NEGATIVE (NEGATIVE) Urine Ketones NEGATIVE (NEGATIVE) Urine Blood 1+ H (NEGATIVE) Urine Nitrate NEGATIVE (NEGATIVE) Urine Bilirubin NEGATIVE (NEGATIVE) Urine Urobilinogen 2.0 EU H EU (0.2-1.0) Ur Leukocyte Esterase 3+ H (NEGATIVE) Urine RBC 5-10 /hpf H /hpf (0-3) Urine WBC 50-182 /hpf H /hpf (0-3) Ur Epithelial Cells TRACE /lpf /lpf (NONE-1+) Urine Mucus TRACE /lpf /lpf (NONE-1+) Urine Glucose NEGATIVE (NEGATIVE) Medications Given: Discontinued Medications Hydromorphone HCl (Dilaudid) 0.5 mg IVP EDNOW ONE Stop: 08/11/18 19:39 Last Admin: 08/11/18 19:54 Dose: 0.5 mg Sodium Chloride (Ns) 1,000 mls @ 0 mls/hr IV ONCE ONE; Wide Open PRN Reason: Protocol Stop: 08/11/18 18:54 Last Admin: 08/11/18 19:27 Dose: 1,000 mls Ceftriaxone Sodium/Dextrose (Rocephin 1 Gm (Premix)) 50 mls @ 100 mls/hr IV EDNOW ONE PRN Reason: Protocol Stop: 08/11/18 19:50 Last Admin: 08/11/18 19:30 Dose: 50 mls Departure - Departure Disposition: Against Medical Advice Clinical Impression: Urinary tract infection Qualifiers: Urinary tract infection type: acute cystitis Hematuria presence: with hematuria Qualified Code(s): N30.01 - Acute cystitis with hematuria Altered mental status Qualifiers: Altered mental status type: stupor Qualified Code(s): R40.1 - Stupor Condition: Fair
--- NOTE | 2018-08-11 19:16 | CPEKG ---
Test Reason : OPEN Blood Pressure : / mmHG Vent. Rate : 096 BPM Atrial Rate : 158 BPM P-R Int : 142 ms QRS Dur : 089 ms QT Int : 368 ms P-R-T Axes : 037 -36 026 degrees QTc Int : 465 ms Sinus tachycardia Multiform ventricular premature complexes Left axis deviation Confirmed by Castillo Means ([id number]) on 08/11/2018 7:16:10 PM Referred By: Confirmed By:Castillo Means
[2018-08-11] MEDS ORDERED: HYDROmorphONE/DILAUDID 2 MG/ML INJ IVP ONE (19:38)
[2018-08-11 19:40] LABS: PLATELET COUNT 609 10^3/uL (150-400)
[2018-08-11 19:53] LABS: INR 1.19 (0.83-1.16); PROTIME(PATIENT) 15.3 SEC (12.0-15.0)
[2018-08-11] MEDS ORDERED: CEPHALEXIN 500 MG CAP PO ONE (21:03)
[2018-08-11 21:19] VITALS: BP 143/85
[2018-08-11] MEDS ORDERED: CEPHALEXIN 250 MG/5 ML BULK BOTTLE PO SCH (22:00)
== END 2018-08-11 21:19 | disposition left against medical advice (07) ==
LOC: EDUNIT# → UNDOADMOB 20:01
DX: N30.01 Acute cystitis with hematuria (principal); R40.1 Stupor; W01.198A Fall on same level from slipping, tripping and stumbling with subsequent striking against other object, initial encounter; Y92.129 Unspecified place in nursing home as the place of occurrence of the external cause; E86.9 Volume depletion, unspecified; Z79.899 Other long term (current) drug therapy; Z85.6 Personal history of leukemia
CPT/HCPCS: 96365; J0696; J1170

== ENCOUNTER 2018-08-14 13:26 | Inpatient (IN) | payer OTHER ==
[2018-08-14] MEDS ORDERED: NS 1,000 ML IV ONE (14:10)
[2018-08-14 14:50] LABS: PLATELET COUNT 623 10^3/uL (150-400)
[2018-08-14] MEDS ORDERED: ceFAZolin 2 GM/DEXTROSE 100 ML IV ONE (14:50)
[2018-08-14 14:57] LABS: INR 1.2 (0.83-1.16); PROTIME(PATIENT) 15.4 SEC (12.0-15.0)
--- NOTE | 2018-08-14 15:20 | EDPHY ---
H & P Time Seen by Provider: 08/14/18 13:45 HPI/ROS: HPI Altered mental status. 78-year-old female by ambulance from [facility]. I received a call from hospice care physician Dr. Redding. Her cell phone number is [phone]. The patient was on hospice care secondary to lymphocytic leukemia. This however was a misdiagnosis and the patient does not have leukemia. This was confirmed by Dr. Ren her oncologist. She therefore, according to Dr. Redding , no longer has a hospice compatible diagnosis. Dr. Redding tells me as does her best friend who is present in the room with her that she has had marked cognitive functional decline over the last 3 weeks. The patient apparently recognize friends and family and was communicating reasonably well with them as well as ambulating under her own power 2-3 weeks ago. She is now no longer to do any of these things. She was seen in our emergency department for the same altered mental status complaint on August 11. She was diagnosed with cystitis. She had a negative CT scan of her head at that time. She was to be admitted but then family wanted her return to hospice. She is here in the emergency department now because she no longer qualifies for hospice care. Prior to getting to the emergency department today, the patient received IV Ativan, Zyprexa and Dilaudid secondary to agitation. ROS: Unable to obtain. Past medical history: Cervical fusion, back surgery, myelodysplasia, as above. Social history: Former smoker. Currently in the room with her best friend. Son and daughters who are power of commonwealth attorney on their way to the emergency department. No alcohol. Physical Exam: General Appearance: Sleeping/sedated, she does not appear in distress. Airway is intact. She intermittently will answer yes or no to questions. This patient general appears well-hydrated and well-nourished. Head: Normocephalic atraumatic. Eyes: Pupils equal and round and reactive to light at 3-2 mm bilaterally, no pallor or injection. No lid edema, erythema or injection. ENT, Mouth: Mucous membranes are moist. The pharyngeal tissues are unremarkable. No edema or swelling. No asymmetry suggestive of abscess. No erythema or exudates. No tongue lacerations or abrasions. Respiratory: There are no retractions, lungs are clear to auscultation anterior with good air movement bilaterally. Cardiovascular: Regular rate and rhythm. No murmur. Gastrointestinal: Abdomen is soft and nontender, no masses, bowel sounds normal. No focal tenderness at McBurney's point. No Malik sign. Neurological: Moves all 4 extremities. Cranial nerves are grossly normal. Skin: Warm and dry, no rashes. Musculoskeletal: Neck is supple and nontender. Extremities are symmetrical. All joints range without apparent pain or impingement. Psychiatric: Agitation is noted above. Database: EKG: EKG time is 2:54 p.m.; EKG shows a narrow complex normal sinus rhythm with a ventricular rate of 87. The VA, QRS, QT intervals are within normal limits. There are no ST-T wave changes indicative of ischemic or injury pattern. No evidence of right heart strain. Interpreted by me. Imaging: Chest x-ray; the cardiac mediastinal silhouette is unremarkable. No evidence of infiltrate or pneumothorax. No acute cardiopulmonary disease process noted. Interpreted by me. Procedures: Emergency department course: Her previous medical records were reviewed. Triage vital signs reviewed and are unremarkable. I discussed need for admission with her best friend who is currently in the room. She is trying to contact sons and daughters and will have them come to the hospital for further decision making. Ariana, our pillowcase turner is aware the patient is here and will work with the hospitalist service on further clarification of her situation. Urinalysis and blood work reviewed. Ammonia level and TSH are pending. I spoke with the on-call hospitalist Dr. Maynor Cooper at 3:00 p.m.. Case discussed in detail with him. He accepts this patient for admission. The patient's remaining emergency department course under my care has been uneventful. She was admitted to the hospitalist service in stable condition. Differential Diagnosis: The differential diagnosis on this patient includes but is not limited to acute sedation from Dilaudid, Ativan and Zyprexa given at hospice, dementia, chronic anemia, dehydration. CVA, acute coronary syndrome unlikely. This represents a partial list of diagnoses considered. These considerations are based on history , physical exam, past history, reassessment and diagnostic testing. Smoking Status: Never smoked Constitutional: Initial Vital Signs Temperature (C) 36.7 C 08/14/18 13:32 Heart Rate 86 08/14/18 13:32 Respiratory Rate 18 08/14/18 13:32 Blood Pressure 134/76 H 08/14/18 13:32 O2 Sat (%) 96 08/14/18 13:32 O2 Delivery Mode Nasal Cannula O2 (L/minute) 2 Allergies/Adverse Reactions: No Allergies [NKDA] Allergy (Verified 04/13/18 14:38) Home Medications: Medication Instructions Recorded Ambien 5MG (*) 5 mg PO HS 01/13/18 Acetaminophen [Arthritis Pain 650 mg PO Q6H PRN 04/28/18 Relief] Herbals/Supplements -Info Only PRN 04/28/18 Ibuprofen 400 mg PO Q6H PRN 04/28/18 NEOSPORIN + PAIN RELIEF OINT PRN 04/28/18 Ondansetron Sl 4 mg PO Q4H PRN 04/28/18 Sennosides/Docusate Sodium 1 each PO BID PRN 04/28/18 [Senna-Docusate Sodium Tablet] Sulfamethox/Tmp 800/160 mg 1 tab PO BID 04/28/18 [Bactrim Ds] oxyCODONE HCL/ACETAMINOPHEN 1 each PO Q6 PRN 04/28/18 [Oxycodone-Acetaminophen 5-325] Cephalexin [Keflex Oral Liquid] 500 mg PO TID #1 bottle 08/11/18 Cephalexin [Keflex] 500 mg PO TID #21 cap 08/11/18 Medical Decision Making - Data Points Laboratory Results: Laboratory Results 08/14/18 14:35 08/14/18 14:35 Medications Given: Discontinued Medications Ceftriaxone Sodium (Rocephin Im Syringe) 1,000 mg IM DAILY SAMMIE Stop: 09/13/18 18:29 Last Admin: 08/15/18 08:31 Dose: 1,000 mg Fentanyl (Sublimaze) 50 mcg IVP ONCE ONE Stop: 08/15/18 04:06 Last Admin: 08/15/18 04:13 Dose: 50 mcg Haloperidol Lactate (Haldol Injection) 2 - 4 mg IVP Q6HRS PRN PRN Reason: Agitation Stop: 02/10/19 17:51 Last Admin: 08/15/18 06:40 Dose: 4 mg Haloperidol Lactate (Haldol Injection) 2 mg IVP ONCE ONE Stop: 08/14/18 17:53 Last Admin: 08/14/18 18:11 Dose: 2 mg Hydromorphone HCl (Dilaudid) 0.6 mg IVP ONCE ONE Stop: 08/14/18 18:05 Last Admin: 08/14/18 18:14 Dose: 0.6 mg Sodium Chloride (Ns) 1,000 mls @ 0 mls/hr IV ONCE ONE; Wide Open PRN Reason: Protocol Stop: 08/14/18 14:11 Last Admin: 08/14/18 14:36 Dose: 1,000 mls Cefazolin Sodium/Dextrose (Ancef) 100 mls @ 200 mls/hr IV EDNOW ONE PRN Reason: Protocol Stop: 08/14/18 15:19 Last Admin: 08/14/18 15:01 Dose: Not Given Lorazepam (Ativan Injection) 2 mg IVP ONCE ONE Stop: 08/14/18 19:51 Last Admin: 08/14/18 20:00 Dose: 2 mg Lorazepam (Ativan Injection) 1 mg IVP ONCE ONE Stop: 08/15/18 01:28 MST Last Admin: 08/15/18 01:32 MST Dose: 1 mg Lorazepam (Ativan Injection) 1 mg IVP ONCE ONE Stop: 08/15/18 02:19 Last Admin: 08/15/18 02:29 Dose: 1 mg Olanzapine (Zyprexa Zydis) 10 mg PO ONCE ONE Stop: 08/14/18 19:51 Last Admin: 08/14/18 20:01 Dose: 10 mg Departure - Departure Disposition: [facility] Clinical Impression: Altered mental status
--- NOTE | 2018-08-14 15:28 | CPEKG ---
Test Reason : OPEN Blood Pressure : / mmHG Vent. Rate : 087 BPM Atrial Rate : 088 BPM P-R Int : 160 ms QRS Dur : 080 ms QT Int : 410 ms P-R-T Axes : 063 -25 046 degrees QTc Int : 494 ms Sinus rhythm Borderline left axis deviation Anteroseptal infarct, age indeterminate Minimal ST elevation, inferior leads Confirmed by Ranjan Munguia ([id number]) on 08/14/2018 3:27:58 PM Referred By: Confirmed By:Ranjan Munguia
[2018-08-14] MEDS ORDERED: HALOPERIDOL LACT 5 MG/ML INJ ONE (17:36)
[2018-08-14] MEDS ORDERED: HALOPERIDOL LACT 5 MG/ML INJ IVP ONE (17:52)
[2018-08-14] MEDS ORDERED: ACETAMINOPHEN 325 MG TAB PO PRN (17:55)
[2018-08-14] MEDS ORDERED: ONDANSETRON DISINTEGRATING 4 MG TAB PO PRN (17:55)
[2018-08-14] MEDS ORDERED: ONDANSETRON 4 MG/2 ML VIAL IVP PRN (17:55)
[2018-08-14] MEDS ORDERED: HYDROmorphONE/DILAUDID 1 MG/ML INJ IVP ONE (18:04)
[2018-08-14] MEDS: HALOPERIDOL LACT 5 MG/ML INJ IVP PRN (19:41)
[2018-08-14] MEDS ORDERED: OLANZapine DISINTEGR 5 MG TAB PO ONE (19:50)
[2018-08-14] MEDS ORDERED: LORazepam 2 MG/ML INJ IVP ONE (19:50)
--- NOTE | 2018-08-14 20:06 | HOSPPROG ---
Hospitalist Progress Note Assessment/Plan: remains agitated after haldol, pain meds zyprexa X 1 ativan 2 mg X 1 QT in 400's- reluctant to go too high on antipsychotics she is a danger to herself and staff 45 min crit care Objective: Vital Signs Temp Pulse Resp BP Pulse Ox 37.0 C 88 18 98/80 L 95 08/14/18 16:13 08/14/18 16:13 08/14/18 16:13 08/14/18 16:13 08/14/18 16:13 08/13/18 08/14/18 08/15/18 05:59 05:59 04:59 Intake Total 1000 Balance 1000 PT 15.4 SEC (12.0-15.0) H 08/14/18 14:35 INR 1.20 (0.83-1.16) H 08/14/18 14:35 ICD10 Worksheet Patient Problems: Problems Problem Status Onset Altered mental status Acute Chest pain Acute Pulmonary embolism Acute Pulmonary infarct Acute Urinary tract infection Acute
--- NOTE | 2018-08-14 21:42 | GHP ---
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 She had been e nrolled into hospice and had been managed at home in [place]. There had been some recent contact b etween Dr. Rene, her home primary care physician and the hospice doctor, Dr. Redding, concerned that she was overmedicated. I have read a lot of documentation suggesting that the patient was agitated and confused and labile in mood. Apparently during a recent interview, she pulled Dr. Redding aside and said that her family was trying to kill her. The following day, she recanted this. I spoke with Dr. Ren today who said that he does doubt the diagnosis of acute lymphoblastic leuk emia because it was untreated as of April of this year, and this would be expected to be a fatal illne ss, and she is clearly so alive. Furthermore, her counts have normalized. She was a one time transf usion dependent. Apparently, an ALL-type picture can sometimes come out of therapy with Jakafi, the medication she was given for her myeloproliferative disorder a couple of years ago. When I speak with the patient, she has agitated delirium. She is asking to go outside. She is requi ring a sitter and a roll belt. Really, no meaningful information was taken from the interview. Some documentation says that she notes some new lower extremity edema noted by the [id number]. She was hospitalized what sounds like [facility] at the hospice center overnight and wa s increasingly agitated and referred here to the emergency department for further evaluation. There is some comment in the notes that, if she does not have ALL, then she is no longer a hospice-eligible patient. The patient has been on a number of medications as an outpatient. I do not have a currently accurate medication list but I know that she had been on Roxanol and Haldol previously. She was given Seroqu el overnight and then, into the early hours of the morning, she was given Seroquel, Dilaudid, and Zyp rexa, as well as oxycodone. There were some notes that she had done reasonably well on Haldol. There is no family available for me to discuss the case with. Discussed the case with Dr. Redding, who said the patient had increasing agitation, and recommended a psychiatric evaluation. She was seen in the emergency department on 08/11, and diagnosed with similar symptoms, diagnosed wit h urinary tract infection, and prescribed Keflex. REVIEW OF SYSTEMS: Complete 10-point review of systems conducted and negative except as noted in the HPI. She has recently lost 12 pounds and had dramatic cognitive decline over the past 6 weeks. PAST MEDICAL HISTORY: Myelodysplastic syndrome treated with Jakafi, suspected acute leukemia with ei ther spontaneous remission and/or spurious diagnosis. Recent urinary tract infection. ALLERGIES: No known drug allergies. MEDICATIONS: Medication list, I believe, as of today, shows Keflex, Ambien, ibuprofen, ondansetron, oxycodone, acetaminophen, senna, Bactrim. I am not exactly clear that this is an accurate medication list. SOCIAL HISTORY: It is not known if the patient is a drinker. I do not think she has been recently. She is a do not resuscitate on the basis of having been in hospice. She does not smell of cigarette s. FAMILY HISTORY: Parents . PHYSICAL EXAMINATION: PRESENTING VITALS: Temp 36.7, blood pressure 134/76, pulse 86, breathing 18 t imes a minute, 96% on 2 L. GENERAL: Agitated, alert, but confused. HEENT: Sclerae anicteric. Grace pharynx clear. Mucous membranes are moist. NECK: Supple without lymphadenopathy. Cannot assess JV D although she is able to lie flat. LUNGS: Clear to auscultation bilaterally without crackles. HEA RT: S1, S2 with a 2/6 holosystolic murmur. ABDOMEN: Soft, nontender, nondistended. LOWER EXTREMIT IES: Show 2+ edema bilaterally. Calves are nontender. SKIN: Without rash. NEUROLOGIC: Nonfocal. Patient has agitated delirium. LABS: White count 4.4, hematocrit 29, hemoglobin 9; these are roughly her baseline. Platelets are 6 23. INR is 1.2. Sodium 139, potassium 3.7, chloride 107, bicarb 29, BUN 8, creatinine 0.7, glucose 84. LFTs normal. Troponin is 0.38. She has never had a positive troponin before. BNP is 3600. No prior for comparison. TSH is normal. Albumin is low. Ammonia is 11. IMAGING: Chest x-ray, interpreted by me, shows no acute current cardiopulmonary disease. EKG: Interpreted by me, shows sinus at 87 with normal axis and intervals. There is a wavy baseline, but no significant ST or T-wave changes. I discussed the case with Dr. Ranjan Munguia, as well as the doctors mentioned in the HPI. ASSESSMENT AND PLAN: 78-year-old female, with complex recent history, presents with agitated deliriu m. 1. Agitated delirium. The differential here includes urinary tract infection, although it has been treated, and I am not even clear that she actually had one, myocardial ischemia, heart failure, intra cranial process, and medication effect. 2. Urinary tract infection. I will complete a 3-day course of antibiotics. She will give a dose of ceftriaxone tonight and tomorrow. 3. Question heart failure. The patient has lower extremity edema and abnormal labs. This is not an acute coronary syndrome. We will cycle troponins and perform echocardiogram in the morning. Pulmon alexandria embolus is considered, not pursued at this moment. She cannot lie still. 4. Intracranial process. The patient probably warrants an MRI given this complex oncologic history that she could have leptomeningeal involvement with a leukemic process. I believe this is not partic ularly likely, but it would represent a therapeutic target. She is far too agitated to get an MRI wi out general anesthesia, and again, given the low likelihood of this, we will defer this for now. T he MRI, if not ordered, should be done this on admission. 5. Medication effect. The record of an outpatient is one of numerous medications, and I think the p atient may be at risk for intoxication and/or withdrawal from narcotics. She is not having diarrhea. She does not have gooseflesh or other symptoms, but I really cannot get any history out of her. I will give her some p.r.n. Ativan. I gave her a 1-time dose of hydromorphone, and I will wait to see the results. I think less medications are probably better for her, and really should just work on th e sort of management of her agitation with p.r.n. Haldol. 6. Question leukemia. Dr. Ren will see her tomorrow. Again, the MRI as planned. 7. Code status. I assume she is do not resuscitate on the basis of having been in hospice for a num addie of months. This can be pursued with family tomorrow. 8. Hospice eligibility. This is not clear at this time, but we will wait for further clarification of her oncologic situation. 9. Disposition. Inpatient status. 10. Prophylaxis. The patient warrants venous thromboembolism prophylaxis. However, she is so agita alessandra she is at risk for falls. I will hold off for now. 11. Question venous thromboembolism. She has bilateral lower extremity edema, potential heme malign regina, and elevated platelets. She is probably at risk for venous thromboembolism. Elevated BNP and troponin are noted. She is not tachycardic, does not have an oxygen requirement. CT PE is probably warranted. I will send a D-dimer, it will certainly be positive, but should the echocardiogram be un revealing or show elevated right-sided pressures, then CT PE would be warranted. I will not empirica lly anticoagulate her. /[id number]/MODL
[2018-08-15] MEDS: HALOPERIDOL LACT 5 MG/ML INJ IVP PRN ×3 (01:04→06:40)
[2018-08-15] MEDS ORDERED: LORazepam 2 MG/ML INJ IVP ONE ×2 (01:27→02:18)
[2018-08-15] MEDS ORDERED: fentaNYL 100 MCG/2 ML INJ IVP ONE (04:05)
--- NOTE | 2018-08-15 07:33 | PDMN ---
Medical Necessity Medical necessity: MCG: M590 delirium- 2 days: complex PMH presents with agitated delirium pt has been in hospice with poss ALL Dg., unclear, ? UTI, ? heart failure, elevated trop 0.388, 0.409 - BNP 3600, Oncology consult pend. further eval - MRI, monitoring anticipate > 2 MN
[2018-08-15 08:05] VITALS: BP 118/60
[2018-08-15] MEDS ORDERED: ENOXAPARIN 40 MG/0.4 ML SYR SC SCH (09:00)
[2018-08-15 09:26] LABS: PLATELET COUNT 772 10^3/uL (150-400)
[2018-08-15] MEDS ORDERED: DEXMEDETOMIDINE HCL 400 MCG in NS 100 ML IV SCH (09:30)
[2018-08-15] MEDS ORDERED: D5W 1/2 NS 1,000 ML IV SCH (11:30)
--- NOTE | 2018-08-15 11:31 | HOSPPROG ---
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 by [facility] - her counts have now significantly improved - her ALL may have gone into spontaneous remission - oncology following # goals of care - had clearly expressed to Dr Ren that she would not want additional treatment - she was in hospice, which may no longer be appropriate if her ALL is in remission Subjective: patient continues to be very delirious, trying to bite staff; multiple loose stools Objective: Vital Signs Temp Pulse Resp BP Pulse Ox 36.6 C 105 H 14 118/60 95 08/15/18 07:59 08/15/18 05:45 08/15/18 07:59 08/15/18 07:59 08/14/18 16:13 Laboratory Results 08/15/18 08:40 08/15/18 08:40 08/14/18 08/15/18 08/16/18 06:59 05:59 05:59 Intake Total Balance PT 15.4 SEC (12.0-15.0) H 08/14/18 14:35 INR 1.20 (0.83-1.16) H 08/14/18 14:35 patient is critically ill requiring IV sedation; 50 mins spent - Physical Exam Constitutional: uncomfortable, other (illogical speach) Cardiovascular: regular rate and rhythym, no murmur, rub, or gallop Respiratory: no respiratory distress, no rales or rhonchi, clear to auscultation Gastrointestinal: soft, non-tender abdomen, no palpable masses, No guarding, No rebound, No distension ICD10 Worksheet Patient Problems: Problems Problem Status Onset Chest pain Acute Pulmonary embolism Acute Pulmonary infarct Acute Urinary tract infection Acute Altered mental status Acute
--- NOTE | 2018-08-15 12:05 | ASMTCMCOM ---
CM Note CM Note Notes: Pt admitted for AMS, agitated delirium, confusion. Pt is requiring a sitter, roll belt and IV sedation / anti-psychotic medications. Pt presented to the ED via EMS from the [facility] ([place], [place]). Pt was very agitated, restless and required 3-4 staff members in her room at times. Hospice MD Dr Redding spoke w/ ED MD and Dr Cooper. Dr Redding recommends a psychiatric evaluation. Pt may no longer be eligible due to possible misdiagnosis or spontaneous remission of acute lymphoblastic leukemia which was diagnosed back in April 2018 by pt's oncologist, Dr Ren. Pt lives alone in [place]. Per chart review, it is stated that pt's MDPOA is her son Chalo Erazo ([phone], W: [phone]) but there is someone else listed as Surrogate Healthcare Decision Maker in our records and there aren't any documents scanned into the chart. If Chalo is MDPOA, request paperwork and have a copy it placed in pt's chart. See H&P for additional information. Ruling out new intracranial process vs. overmedicated delirium. Dr Ren to see the patient today. Pt's PCP is Dr Lei Rene in [place] ([phone]) Exact DC needs TBD. Pt's Troponin was elevated, ECHO pending. PT/OT evals ordered. CM to follow. Date Signed: 08/15/2018 12:05 PM Electronically Signed By:Ariana Hernandez RN
--- NOTE | 2018-08-15 13:56 | GCON ---
INPATIENT HEMATOLOGY CONSULTATION DATE OF CONSULTATION: 08/15/2018 REFERRING PHYSICIAN: Terrance Cooper MD OUTPATIENT ONCOLOGIST: Wolf Ren MD. REASON FOR CONSULTATION: History of hematological malignancies, now with altered mental status. 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 She is well known to me from clinic. I first met her in May 2017 when she presented with bone pain associated with thrombocytosis. Her platelet co unt was around 1.4 million. A bone marrow biopsy revealed myelofibrosis. She had mutations in ASXL1 , TET2, and U2AF1, with a normal karyotype and negative for JAK2 mutation. Because of the severe thr ombocytosis and the concern that this disorder was causing her bone pain, we tried her on hydroxyurea and then Jakafi. She has not tolerated either one well and developed cytopenias, which required hol ding these medications. It did not help her constitutional symptoms either. She also developed a pu lmonary embolism during these treatments and was started on warfarin. Ultimately, in the spring, we elected to discontinue those therapies. She did require some transfusions for symptomatic an emia. In March, she presented with worsening counts despite having discontinued Jakafi over 6 weeks prior. A bone marrow biopsy unexpectedly revealed acute lymphoblastic leukemia involving 80% of the bone mar row. Flow cytometry showed that the cells were positive for CD34, CD19, TdT, CD22, and aberrant expr ession of CD13, with negative expression of CD10 and CD117. At that time, I had a mena discussion w ith her about the overall poor prognosis of acute lymphoblastic leukemia in older adults. She electe d for hospice care and did not want to receive any cytotoxic chemotherapy. She then enrolled in Hospice, and I have not seen her since then. She has been followed by Dr. Shannen ingram, her primary care physician in [place], and I have spoken to him periodically about her care. Unexpectedly, over time, her transfusion requirement went down and her blood counts improved, to the point where they now resembled her initial presentation with thrombocytosis and moderate anemia. Dr. Rene called me about a week ago to expresses some concern about the patient's mental status. He felt that she may be on too many narcotic medications. I also discussed her case with Dr. Ila Redding from Hospice, who agreed that that might be an issue. The patient was admitted to the [facility] care center for increasing altered mental status and agitatio n. She remained extremely agitated and was transferred to the hospital yesterday. She has been star alessandra on Haldol. She remains very delirious. Her CBC shows a white count of 4.74 with no blasts seen, hemoglobin 10.9, and platelets 772. Comprehensive metabolic panel was normal. She has not had a fe gabbi. She is unable to provide any history due to her altered mental status. PAST MEDICAL HISTORY: 1. Primary myelofibrosis. 2. Possible rheumatoid arthritis. This is never been firmly established as a diagnosis. CURRENT MEDICATIONS: Include ceftriaxone and Haldol as needed. ALLERGIES: She has no known drug allergies. FAMILY HISTORY: Noncontributory. SOCIAL HISTORY: She lives alone in [place]. I believe she has a medical power of attorney law clerk, but th at is not clear to me at the current time. REVIEW OF SYSTEMS: Unable to obtain secondary to the patient's altered mental status. PHYSICAL EXAMINATION: VITAL SIGNS: Her temperature was 36.6, blood pressure 118/60, heart rate 105, and oxygen saturation 95% on room air. GENERAL: She was delirious and incoherent. She was not bruno ented to place and was unable to follow commands or answer questions. She was breathing comfortably. HEENT: Her sclerae were anicteric. Oropharynx was clear. NECK: Supple without lymphadenopathy. LUNGS: Clear to auscultation bilaterally. CARDIAC: Regular rate and rhythm. No murmurs, gallops, or rubs. ABDOMEN: Normoactive bowel sounds. Nontender and nondistended. EXTREMITIES: Without ed emilie. NEUROLOGICAL: She had agitation and confusion. She moved all 4 extremities. I was not able t o conduct a more thorough neurological examination secondary to her mental status. LABORATORY DATA: Reviewed in the HPI section. IMAGING: A head CT performed on August 11 when she was also evaluated for altered mental status was unremarkable. IMPRESSION: This is a 78-year-old woman with a very unusual history of hematological malignancy. Sh karel had primary myelofibrosis and then developed acute lymphoblastic leukemia. While it is unusual to see this, it has been described, particularly in patients who have been receiving Jakafi to treat the ir myelofibrosis. What is quite remarkable about her case is that the disease appears to have gone i nto remission spontaneously. I would have estimated her overall survival from the time of diagnosis for untreated acute lymphoblastic leukemia in an elderly patient to be less than a month. Despite no t having received any treatment, her CBC does not show any evidence of circulating blasts, though I c annot be sure that there is no residual leukemia without doing a bone marrow biopsy. Her altered mental status could be the result of a number of factors. Certainly, central nervous sys tem involvement of her leukemia could be a factor, though that seems less likely given that her blood counts have overall improved, and the disease, if anything, seems to have regressed. She could have a central nervous system infection such as herpes encephalitis, West Nile disease, or other potentia l central nervous system infections. This could be the effect of medication withdrawal from centrall y acting medications that she has been on while in the hospice setting. It could also be the result of an infection such as a urinary tract infection for which she is being treated, though the degree o f her delirium seems out of proportion to her confusion. I think the biggest question in this patient is how aggressive one would be with her care. When I me t with her in April to discuss the diagnosis of acute lymphoblastic leukemia, she was very clear that she would not want aggressive therapy and simply wanted to be kept comfortable. However, if she is s uffering from a drug effect or an acute infection that could be treated, she might desire more aggres sive care. If those things could be reversed, then she could return to living independently with a g ood quality of life. She is clearly unable to participate in medical decision making, and so I have spoken to the primary team about identifying her medical power of attorney law clerk to help us make these deci sions on her behalf. Certainly, from my perspective, the leukemia does not appear to be the driving issue at this point, though again there remains the possibility that this is a manifestation of centr al nervous system involvement, which would need a lumbar puncture to diagnose. RECOMMENDATIONS: 1. Continue supportive care for delirium as you are. 2. I will organize a meeting with the medical power of attorney law clerk to discuss the situation and how agg ressive we should be in terms of diagnostics. 3. An aggressive workup for potential causes would include MRI of the brain and lumbar puncture, tho ugh again based on the patient's previously stated wishes, she might not desire such aggressive care, particularly as FRUIT PRESS OPERATOR involvement of her leukemia would be a very grave prognostic sign and would be e xtremely difficult to treat. We will continue to follow the patient closely with you while she is in the hospital. /[id number]/MODL
--- NOTE | 2018-08-15 17:07 | GDS ---
DATE OF : 08/15/2018. ALL DIAGNOSES: 1. Acute agitated delirium. 2. Suspected myocardial infarction. 3. Ventricular fibrillation arrest. 4. Myelodysplastic syndrome and possible acute lymphoblastic leukemia. HOSPITAL COURSE: This is a 78-year-old female, who had been on hospice after receiving a diagnosis o f MDS transformed to acute lymphoblastic leukemia. Her counts had actually improved bringing up the question of whether her ALL had gone into spontaneous remission. She had become markedly agitated ov er the past few days at hospice. Thus she was transferred to the hospital for additional care. Work up here showed persistent diarrhea as well as elevated cardiac enzymes. She was extremely agitated a nd delirious. I saw her on multiple visits throughout the day today, and I transferred her down to [facility] ICU for additional care and support including Precedex drip. Cardiology had been consulted given a significant rise in her troponin; echocardiogram had been ordered. After she got to the ICU, she h ad been cleaned up and was then noted to quit breathing. She was quickly placed on the monitor and f ound to be in ventricular fibrillation. She at approximately 12:09 p.m. Fabric Designer and donor line s were notified. I met with the family including her son and [id number] and informed them of th is. They expressed that she had been suffering for some time and this is truly what she had wanted. Adilene with [facility] was present as well and speaking with the family. BILLING: I spent a total of 60 minutes of critical care time throughout the day caring for the sonya wade. /[id number]/MODL
--- NOTE | 2018-08-15 18:27 | ASDISCHSUM ---
Discharge Information Plan Status: Medically Cleared to Leave: Discharge Date:08/15/2018 02:30 PM CM D/C Disposition: ADT D/C Disposition: Projected Discharge Date:08/15/2018 02:30 PM Transportation at D/C: Discharge Delay Reason: Follow-Up Date:08/15/2018 02:30 PM Discharge Slot: Final Diagnosis:Vfib arrest, [place], acute agitated delirium, myelodysblastic syndrome Placement Information Patient Contact Information Contact Name:LUCILLE Relationship:Other Address:[address] [place] [address] Work Phone: City:[facility] Phone: [facility]/Zip Code:[place] [address] Email: Financial Information Financial Class:HMO and PPO Plans Primary Plan Desc:[facility] Primary Plan Number:[id number] Secondary Plan Desc: Secondary Plan Number: Assessment Information LACE LACE Length of stay for Answers: 1 day current admission Acuity / Level of Answers: Yes Care: Did the patient have an inpatient admission? Comorbidities - select Answers: Any tumor (including all that apply lymphoma or leukemia) Other Notes: recent UTI, hx of PE, possible CHF, possible DVT, suspected acute leukemia, hx of myelodysplastic syndrom e, # of Emergency department Answers: 3-4 visits in the last 6 months Score: 10 Date Signed: 08/15/2018 06:26 PM Electronically Signed By:Lorri Coronel RN [facility] Progress Note CM Note CM Note Notes: Pt admitted for AMS, agitated delirium, confusion. Pt is requiring a sitter, roll belt and IV sedation / anti-psychotic medications. Pt presented to the ED via EMS from the [facility]. Pt was very agitated, restless and required 3-4 staff members in her room at times. Hospice MD Dr Redding spoke w/ ED MD and Dr Cooper. Dr Redding recommends a psychiatric evaluation. Pt may no longer be eligible due to possible misdiagnosis or spontaneous remission of acute lymphoblastic leukemia which was diagnosed back in April 2018 by pt's oncologist, Dr Ren. Pt lives alone in [place]. Per chart review, it is stated that pt's MDPOA is her son Chalo Erazo ([phone], W: [phone]) but there is someone else listed as Surrogate Healthcare Decision Maker in our records and there aren't any documents scanned into the chart. If Chalo is MDPOA, request paperwork and have a copy it placed in pt's chart. See H&P for additional information. Ruling out new intracranial process vs. overmedicated delirium. Dr Ren to see the patient today. Pt's PCP is Dr Lei Rene in [place] ([phone]) Exact DC needs TBD. Pt's Troponin was elevated, ECHO pending. PT/OT evals ordered. CM to follow. Date Signed: 08/15/2018 12:05 PM Electronically Signed By:Ariana Hernandez RN Intervention Information
== END 2018-08-15 14:30 | disposition expired | DRG 884 ==
LOC: EDUNIT# → F3E 16:06 → F2N 08-15 11:17
PROVIDERS: ADMIT Internal Medicine; ATTEND Internal Medicine
DX: R45.1 Restlessness and agitation (principal); I21.9 Acute myocardial infarction, unspecified; C91.00 Acute lymphoblastic leukemia not having achieved remission; N39.0 Urinary tract infection, site not specified; I49.01 Ventricular fibrillation; R41.0 Disorientation, unspecified; D46.9 Myelodysplastic syndrome, unspecified; R19.7 Diarrhea, unspecified; Z66 Do not resuscitate
CPT/HCPCS: G0480; J0690; J0696; J1170; J1630; J2060; J3010